=== PATIENT | female | born 1995 | race Caucasian/White ===

== ENCOUNTER 2017-09-12 12:30 | Emergency (ER) | payer MEDICAID ==
[~2017-09-12] VITALS: Ht 170.2 cm; Wt 100.4 kg
[2017-09-12 12:50] VITALS: BP 93/43
--- NOTE | 2017-09-12 14:18 | NUR ---
x-ray completed---pt awaits medical eval. pt admits pain below untolerable level at this time.
[2017-09-12 15:34] VITALS: BP 93/43
--- NOTE | 2017-09-12 15:35 | NUR ---
Patient discharged with v/s stable. Written and verbal after care instructions given and explained. Patient verbalized understanding. Ambulatory with steady gait. All questions addressed prior to discharge. Advised to follow up with PMD.
== END 2017-09-12 15:35 | disposition home or self-care (01) ==
LOC: MED 12:30
DX: S83.8X1A Sprain of other specified parts of right knee, initial encounter (principal); W01.0XXA Fall on same level from slipping, tripping and stumbling without subsequent striking against object, initial encounter; Y93.89 Activity, other specified; Y92.89 Other specified places as the place of occurrence of the external cause; Y99.8 Other external cause status
CPT/HCPCS: 73562; 81025; 99284

== ENCOUNTER 2017-11-07 12:01 | Emergency (ER) | payer MEDICAID, OTHER ==
[~2017-11-07] VITALS: Ht 172.7 cm; Wt 99.8 kg
[2017-11-07 12:14] VITALS: BP 100/66
--- NOTE | 2017-11-07 12:42 | NUR ---
PATIENT TO OF1 AT THIS TIME.
--- NOTE | 2017-11-07 12:50 | NUR ---
PATIENT 22 YO FEMALE BIB SELF FOR COUGH AND COLD. AWAKE AND ALERT ABLE TO AMBULATE.
[2017-11-07] MEDS ORDERED: IPRATROPIUM 0.02% 0.5 MG/2.5 ML NEBU INH ONE (13:35)
[2017-11-07] MEDS ORDERED: ALBUTEROL 0.083% 2.5 MG/3 ML NEBU INH ONE (13:35)
[2017-11-07] MEDS ORDERED: predniSONE 20 MG TAB PO ONE (13:35)
[2017-11-07 14:43] VITALS: BP 100/66
--- NOTE | 2017-11-07 14:43 | NUR ---
Patient discharged with v/s stable. Written and verbal after care instructions given and explained. Patient alert, oriented and verbalized understanding of instructions. Ambulatory with steady gait. All questions addressed prior to discharge. ID band removed. Patient advised to follow up with PMD. Rx of PREDNISONE, ALBUTEROL, AND COUGH SYRUP given. Patient educated on indication of medication including possible reaction and side effects. Opportunity to ask questions provided and answered.
== END 2017-11-07 14:43 | disposition home or self-care (01) ==
LOC: MED 12:01
DX: J98.01 Acute bronchospasm (principal); B34.9 Viral infection, unspecified
CPT/HCPCS: 71045; 94640; 99283; J7613; J7644

== ENCOUNTER 2018-05-17 09:28 | Emergency (ER) | payer OTHER ==
[~2018-05-17] VITALS: Ht 170.2 cm; Wt 104.3 kg
[2018-05-17 09:29] VITALS: BP 133/86
[2018-05-17 11:03] VITALS: BP 115/55
== END 2018-05-17 11:03 | disposition home or self-care (01) ==
LOC: MED 09:28
DX: K21.9 Gastro-esophageal reflux disease without esophagitis (principal); R05 Cough
CPT/HCPCS: 71045; 99283; Q0092